=== PATIENT | male | born 1940 | race Two or more races ===

== ENCOUNTER → 2019-07-18 | Outpatient (CLI) | payer OTHER ==
[~2019-07-18] VITALS: Ht 152.4 cm; Wt 64.4 kg
== END | disposition home or self-care (01) ==
LOC: OFIC 805 06:44
DX: H93.12 Tinnitus, left ear (principal); J31.2 Chronic pharyngitis; J31.0 Chronic rhinitis; H61.23 Impacted cerumen, bilateral; G20 Parkinson's disease